=== PATIENT | female | born 2000 | race Caucasian/White ===

== ENCOUNTER 2021-07-22 08:10 | Emergency (ER) | payer OTHER, MEDICAID, SELFPAY ==
[2021-07-22 08:22] VITALS: BP 125/82; PULSE 105; RESP 18; TEMP 37.7; O2SAT 99
--- NOTE | 2021-07-22 08:59 | ED.URI ---
HPI - URI/Sore Throat General Chief Complaint: Upper Respiratory Infection Stated Complaint: Sore Throat Time Seen by Provider: 07/22/21 08:59 Source: patient and RN notes reviewed Mode of arrival: ambulatory Limitations: no limitations History of Present Illness HPI Narrative: 21-year-old female presents with concern for sore throat, body aches, fever. She reports symptoms started yesterday. She denies nasal congestion, rhinorrhea, cough, shortness of breath, nausea, vomiting, diarrhea, headache. Reports she took ibuprofen which helped with pain. MD elicited complaint: sore throat Related Data Home Medications Medication Instructions Recorded Confirmed No Home Medications 07/22/21 07/22/21 Allergies Allergy/AdvReac Type Severity Reaction Status Date / Time Penicillins Allergy Unknown RASH Verified 07/14/16 23:13 Vinegar Allergy Unknown Unknown Uncoded 07/22/21 08:52 Review of Systems Review of Systems: CONSTITUTIONAL: Report malaise, fever. EYES: Denies visual changes, redness, or discharge. ENT: Denies rhinorrhea, congestion, sinus pain, otalgia. Reports sore throat. CARDIOVASCULAR: Denies chest pain, palpitations, or edema. RESPIRATORY: Denies cough. Denies dyspnea. GASTROINTESTINAL: Denies abdominal pain, nausea, vomiting, diarrhea SKIN: Denies rash or itching. MUSCULOSKELETAL: Reports myalgia. NEUROLOGIC: Denies headache. All systems reviewed & are unremarkable except as noted in HPI and below PMFSH Comments At time of signature, agree with nursing past medical, surgical, social and family history. There is no relevant family history pertinent to the presenting complaint Exam Narrative: GENERAL: Well-appearing, well-nourished, and in no acute distress. HEAD: Normocephalic EYES: PERRLA, conjunctivae clear ENT: Nares clear. Mucous membranes moist. TM pearly contreras with dull light reflex bilaterally; no tragal tenderness. Oropharynx erythematous without lesions. Tonsils enlarged and without exudate, no drooling, no hoarseness, no trismus, uvula midline. NECK: Supple. No lymphadenopathy CHEST: Clear to auscultation, breath sounds equal. No wheezing, rhonchi, rales, or stridor. No respiratory distress, speaks in full sentences. HEART: Regular rate and rhythm. No murmur heard. SKIN: Warm, dry, no rash. NEURO: Alert and oriented x3. PSYCH: Normal mood and affect Course Course Emergency Course: Patient denies history of IgE type I mediated reaction to penicillin Patient is aware of diagnosis, understands and agrees to treatment plan. Anticipatory guidance given. Patient agrees to follow-up as directed and is aware of reasons to seek care at the emergency department. Portions of this record may have been created with voice recognition software Level of Care: Express Care Visit Vital Signs Vital signs: Vital Signs Temperature 99.8 F H 07/22/21 08:22 Pulse Rate 105 H 07/22/21 08:22 Respiratory Rate 18 07/22/21 08:22 Blood Pressure 125/82 07/22/21 08:22 Pulse Oximetry 99 07/22/21 08:22 Temperature 99.8 F H 07/22/21 08:22 Pulse Rate 105 H 07/22/21 08:22 Respiratory Rate 18 07/22/21 08:22 Blood Pressure 125/82 07/22/21 08:22 Pulse Oximetry 99 07/22/21 08:22 Reviewed. Patient has been instructed to follow up with her primary care provider within the next week regarding her elevated blood pressure today. MDM - URI/Sore Throat MDM Narrative Medical decision making narrative: Differential diagnosis considered: Van virus, strep pharyngitis, allergic rhinitis, upper respiratory tract infection, sinusitis, rhinosinusitis, nasopharyngitis. viral pharyngitis, otitis media, otitis externa, pneumonia, bronchitis, viral cough syndrome, viral syndrome, and influenza. Exam findings show no acute concerns or changes; patient is non-toxic appearing and is in no distress. Patient is appropriate for outpatient treatment and follow-up. Lab Data Attestation: I reviewed the patient's lab results. Sotero
== END 2021-07-22 09:26 | disposition home or self-care (01) ==
PROVIDERS: Emergency Provider Nurse Practitioner
DX: J03.90 Acute tonsillitis, unspecified (principal); Z20.822 Contact with and (suspected) exposure to COVID-19
CPT/HCPCS: 87081; 87426; 87880; 99203; C9803; G0463

== ENCOUNTER 2023-07-10 19:36 | Emergency (ER) | payer OTHER, MEDICAID, SELFPAY ==
[2023-07-10 19:49] VITALS: BP 121/67; PULSE 58; RESP 18; TEMP 36.8; O2SAT 100
[2023-07-10 19:50] VITALS: BP 121/67; PULSE 58; RESP 18; TEMP 36.8; O2SAT 100
--- NOTE | 2023-07-10 20:00 | ED.URI ---
HPI - URI/Sore Throat General Chief Complaint: Ear Stated Complaint: lt earache Time Seen by Provider: 07/10/23 19:55 Source: patient and RN notes reviewed Mode of arrival: ambulatory Limitations: no limitations History of Present Illness HPI Narrative: Patient presents today complaining of sore throat, body aches, postnasal drip, and left ear pain since yesterday. Denies fever. Reports sore throat has been improving since onset. Currently rates her pain 2/10 and has been taking sinus medication with some mild relief. Related Data Home Medications Medication Instructions Recorded Confirmed ergocalciferol (vitamin D2) 1,250 07/10/23 mcg (50,000 unit) capsule escitalopram oxalate 10 mg tablet mg 07/10/23 levonorgestrel 21 mcg/24 hours (8 1 device intrauterine ONCE 07/10/23 07/10/23 yrs) 52 mg intrauterine device (Mirena) Allergies Allergy/AdvReac Type Severity Reaction Status Date / Time Penicillins Allergy Unknown RASH Verified 07/14/16 23:13 Vinegar Allergy Unknown Unknown Uncoded 07/10/23 19:49 Review of Systems Review of Systems: CONSTITUTIONAL: Denies fever, chills, or sweats.+ body aches EYES: Denies visual changes, redness, or discharge. ENT: Denies rhinorrhea, congestion. + sore throat, left ear pain, postnasal drip CARDIOVASCULAR: Denies chest pain, palpitations, or edema. RESPIRATORY: Denies cough or dyspnea. GASTROINTESTINAL: Denies abdominal pain, nausea, vomiting, or diarrhea. GENITOURINARY: Denies dysuria or hematuria. SKIN: Denies rash, itching, or wounds. MUSCULOSKELETAL: Denies back pain, joint pain, or myalgia. NEUROLOGIC: Denies headache, numbness, tingling, or weakness. PSYCH: Denies depression or anxiety. PMFSH Comments At time of signature, I have reviewed and agree with nursing past medical, surgical, social and family history unless otherwise noted. Please see nursing chart for further information. There is no relevant family history pertinent to the presenting complaint Exam Narrative: GENERAL: Well-appearing, well-nourished, and in no acute distress. HEAD: Normocephalic, atraumatic. EYES: EOMI. No redness or drainage. Conjunctivae normal. ENT: Mucous membranes pink and moist. Nares congested. No rhinorrhea. Right TM bulging with clear material. Left TM erythematous and bulging with purulent material. Throat mildly erythematous without exudate. Uvula midline. NECK: Normal AROM. Supple. No lymphadenopathy. CHEST: No respiratory distress. Clear to auscultation. HEART: Regular rate and rhythm. No murmur appreciated. EXTREMITIES: Normal range of motion. No edema. SKIN: Warm, dry, no rash. Capillary refill normal. Normal skin turgor. NEURO: No focal deficits. Alert and oriented x3. Gait steady. PSYCH: Normal affect. No signs of depression or anxiety. Course Course Level of Care: Express Care Visit Vital Signs Vital signs: Vital Signs Temperature 98.2 F 07/10/23 19:49 Pulse Rate 58 L 07/10/23 19:49 Respiratory Rate 18 07/10/23 19:49 Blood Pressure 121/67 07/10/23 19:49 Pulse Oximetry 100 07/10/23 19:49 Oxygen Delivery Room Air 07/10/23 19:49 Temperature 98.2 F 07/10/23 19:50 Pulse Rate 58 L 07/10/23 19:50 Respiratory Rate 18 07/10/23 19:50 Blood Pressure 121/67 07/10/23 19:50 Pulse Oximetry 100 07/10/23 19:50 Oxygen Delivery Room Air 07/10/23 19:50 Reviewed MDM - URI/Sore Throat MDM Narrative Medical decision making narrative: Patient will be treated with a course of cefdinir her ear infection. Remainder of symptoms are likely viral. Discussed [id number] treatment and duration of illness. Anticipatory guidance given. Differential Diagnosis Differential diagnosis: Likely upper respiratory infection, otitis media, viral infection and pharyngitis Critical Care Time Critical Care Time Critical Care Time: No Discharge Plan Discharge Clinical Impression: Acute suppur left otitis media w/o s
== END 2023-07-10 20:08 | disposition home or self-care (01) ==
PROVIDERS: Emergency Provider Nurse Practitioner; PCP Physician Assistant
DX: H66.002 Acute suppurative otitis media without spontaneous rupture of ear drum, left ear (principal); J06.9 Acute upper respiratory infection, unspecified; Z79.899 Other long term (current) drug therapy
CPT/HCPCS: 99213; G0463

== ENCOUNTER 2024-11-22 13:57 | Outpatient (CLI) | payer OTHER, MEDICAID, SELFPAY ==
--- OUTSIDE RECORDS SUMMARY | 2024-11-22 14:01 | XMS_ITS | Clinical Summary ---
Author Organization [facility] [employer] Address [address] [place] [address] Care Team Providers Care Therapeutic Riding Instructor Name Role Phone Masood Santamaria MD Primary Care Provider [phone] Source Comments [facility],non-owned Affiliates and Associated Physician Practices is amultiple site organization consisting of ambulatory clinics and hospital sitesin [place], [place], [place] and [place]. This disclosure is being madepursuant to the Care Everywhere program and may not contain all information available regarding this patient. Last updated 18.[facility] Allergies Active Allergy Reactions Criticality Noted Date Comments Penicillins 02/25/2012 Medications * Be aware that medications may not be up to date on this document. Alwaysverify current medications with the patient. 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 (F LUZONE; FLULAVAL; FLUARIX; AFLURIA QUADRIVALENT; 6MO+), 0.5 ML (IIV4) 02/07/2021,02/25/2020 Influenza Pf Intradermal (ADULT) 01/23/2017 Family History Medical History Relation Name Comments Arthritis - Rheumatoid Neg Hx Celiac Disease Neg Hx Crohn's Disease Neg Hx Lupus Neg Hx Psoriasis Neg Hx Thyroid Disease Neg Hx Ulcerative Colitis Neg Hx Social History Tobacco Use Types Packs/Day Years Used Date Smoking Tobacco: Never Tobacco Cessation:Counseling Given: No Alcohol Use Standard Drinks/Week Comments No 0 (1 standard drink = 0.6 oz pur e alcohol) Comments No Sex and Gender Information Value Date Recorded Sex Assigned at Not on file Legal Sex Female 5:44 AM BUSPERSON Gender Identity Female 02/05/2021 12:40 PM CDT Sexual Orientation Not on file Last Filed Vital Signs Vital Sign Reading Time Taken Comments Blood Pressure 108/66 12/24/2016 3:49 PM CDT Pulse 60 12/24/2016 3:49 PM CDT Temperature 37 C (98.6 F) 12/24/2016 3:49 PM CDT Respiratory Rate 24 12/24/2016 3:49 PM CDT Oxygen Saturation 99% 08/03/2012 11:00 AM CDT Inhaled Oxygen Concentration - - Weight 58.6 kg (129 lb 3 oz) 12/24/2016 3:49 PM CDT Height 164.3 cm (5' 4.69) 12/24/2016 3:49 PM CD T Body Mass Index 21.71 12/24/2016 3:49 PM CDT Plan of Treatment Health Maintenance Due Date Last Done Comments HIV SCREENING 2015 HPV VACCINE (1 - 3-dose series) 2015 CHLAMYDIA/GONORRHEA SCREENING 2016 HEPATITIS C SCREENING 03/08/2018 DTAP/TDAP/TD VACCINES (1 - Tdap) 2019 HEPATITIS B VACCINE (1 of 3 - 19+ 3-dose series) 2019 COVID-19 VACCINE (1 - 2023- season) 2024 DEPRESSION SCREENING 05/23/2024 INFLUENZA VACCINE (Season Ended) 2025 02/07/2021, 02/25/2020, 01/11/2018, Additional history exists ZOSTER VACCINE (1 of 2) 2050 HIB VACCINE Aged Out No longer eligi ble based on patient's age to complete this topic MENINGOCOCCAL (Group B) VACCINE SHARED DECISION-MAKING Aged Out No longer eligible based on patient's age to complete this topic MENINGOCOCCAL GROUPS A/C/Y/W VACCINE Aged Out No longer eligible based on patient's age to complete this topic PNEUMOCOCCAL VACCINE Aged Out No long er eligible based on patient's age to complete this topic Insurance [employer] MEDICAID - [place] Care Teams Therapeutic Riding Instructor Relationship Specialty Start Date End Date Masood Santamaria MD [address], [place] [address] PCP - General Pediatrics 02/24/12
--- OUTSIDE RECORDS SUMMARY | 2024-11-22 14:01 | XMS_ITS | Clinical Summary ---
Author Organization [facility] Address [address] [place] [address] Phone Care Team Providers Care Lighting Fixture Installer Name Role Phone Masood Santamaria MD Primary Care Provider Allergies Active Allergy Reactions Criticality Noted Date Comments Penicillins Rash 06/24/2018 Medications traMADol (ULTRAM) 50 MG Tablet Take 1-2 Tabs by mouth every 6 hours as needed for Mild or more severe pain. 20 Tab 06/24/2018 Active Social History Tobacco Use Types Packs/Day Years Used Date Smoking Tobacco: Never Assessed Comments No Sex and Gender Information Value Date Recorded Sex Assigned at Not on file Legal Sex Female 10:56 PM CDT Gender Identity Not on file Sexual Orientation Not on file Last Filed Vital Signs Vital Sign Reading Time Taken Comments Blood Pressure 133/84 06/24/2018 2:26 PM LEATHER STRIPPING MACHINE OPERATOR Pulse 64 06/24/2018 2:26 PM LEATHER STRIPPING MACHINE OPERATOR Temperature 36.8 C (98.3 F) 06/24/2018 11:42 AM LEATHER STRIPPING MACHINE OPERATOR Respiratory Rate 16 06/24/2018 2:26 PM LEATHER STRIPPING MACHINE OPERATOR Oxygen Saturation 100% 06/24/2018 2:26 PM LEATHER STRIPPING MACHINE OPERATOR Inhaled Oxygen Concentration - - Weight 56.7 kg (125 lb) 06/24/2018 11:42 AM LEATHER STRIPPING MACHINE OPERATOR Height 165.1 cm (5' 5) 06/24/2018 11:42 AM LEATHER STRIPPING MACHINE OPERATOR Body Mass Index 20.8 06/24/2018 11:42 AM LEATHER STRIPPING MACHINE OPERATOR Plan of Treatment Health Maintenance Due Date Last Done Comments Hepatitis C Virus (HCV) Screening 2000 SARS-COV-2 Immunization ( season) 2024 05/24/2021, 04/22/2021 Influenza Immunization (#1) 2025 01/11/2018, 1 Respiratory Syncytial Virus (RSV) Immunization (Adult) (1 - 1-dose 75+ series) 2075 TdaP Immunization Completed 12/02/2011 Hepatitis A Immunization Discontinued 09/15/2012, 11/20 Human Papillomavirus (HPV) Immunization Completed 12/05/2012, 09/15/2012, 12/02/2011 DTaP/Tdap/Td Immunization Discontinued 2013, 12/02/2011, 08/26/2006, Additional history exists Hepatitis B Immunization Completed 014, 2000, 2000, Additional history exists Measles Mumps Rubella (MMR) Immunization Discontinued 03/25/2014, 08/26/2006, 03/17/2001 Pneumococcal Immunization Combined Aged Out 03/25/2014, 07/07/2001, 2000, Additional history exists No longer eligible based on patient's age to complete this topic Polio (IPV) Immunization Discontinued 014, 08/26/2006, 07/07/2001, Additional history exists Varicella Immunization Discontinued 4, 08/26/2006, 03/17/2001 Meningococcal Immunization (ACWY) Completed 04/02/2016, 12/02/2011 Meningococcal B Immunization Discontinued 03/13/2018, 01/11/2018 Rotavirus Immunization Aged Out No lo nger eligible based on patient's age to complete this topic Insurance [employer] [facility] MEDICAID [place] Care Teams Lighting Fixture Installer Relationship Specialty Start Date End Date Masood Santamaria MD PCP - General Pediatrics 06/24/18
--- OUTSIDE RECORDS SUMMARY | 2024-11-22 14:01 | XMS_ITS | Referral Summary ---
Author Organization [facility] Address [address] [place] [address] Care Team Providers Care Smart Energy Specialist Name Role Phone No, Physician Primary Care Provider [phone] Encounters Date Type Department Care Team Description 09/21/2024 Results Follow-Up [facility] [address] (Third Floor) [place] [address] Sheridan Justice MA T-SPOT.TB Blood 09/17/2024 11:40 AM CDT Lab [facility] [address] [place] [id number] Pre-employment health screening examination 09/17/2024 Orders Only [facility] [address] (Third Floor) [place] [address] Deep Garcia MD Pre-employment health screening examination (Primary Dx) from Last 3 Months Allergies Active Allergy Reactions Criticality Noted Date Comments Penicillins Rash Medium 06/29/2018 Medications KARIVA, 28, 0.15-0.02 mgx21 /0.01 mg x 5 per tablet 04/17/2018 Active Active Problems Problem Noted Date Diagnosed Date Displaced fracture of proxim al phalanx of left thumb with routine healing 06/29/2018 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 Social History Tobacco Use Types Packs/Day Years Used Date Smoking Tobacco: Never Smokeless Tobacco: Never Alcohol Use Standard Drinks/Week Comments No 0 (1 standard drink = 0.6 oz pur e alcohol) Comments Unknown Sex and Gender Information Value Date Recorded Sex Assigned at Not on file Legal Sex Female 1:35 AM ACCOUNT INSTALLER Gender Identity Not on file Sexual Orientation Not on file Last Filed Vital Signs Vital Sign Reading Time Taken Comments Blood Pressure 129/82 06/30/2018 1:40 PM ACCOUNT INSTALLER Pulse 68 06/30/2018 1:40 PM ACCOUNT INSTALLER Temperature 36.5 C (97.7 F) 06/30/2018 1:40 PM ACCOUNT INSTALLER Respiratory Rate 20 06/30/2018 1:40 PM ACCOUNT INSTALLER Oxygen Saturation 100% 06/30/2018 1:40 PM ACCOUNT INSTALLER Inhaled Oxygen Concentration - - Weight 56.2 kg (123 lb 14.4 oz) 019 10:45 AM ACCOUNT INSTALLER Height 166 cm (5' 5.35) 06/30/2018 10: 45 AM ACCOUNT INSTALLER Body Mass Index 20.4 06/30/2018 10:45 AM ACCOUNT INSTALLER Plan of Treatment Not on file Medical Devices Implanted Type Area Retail Performance Coach Device Identifier Shelf Expiration Date Model / Serial / Lot [employer] 1600-021 Jolly .035in 5.5in 2 Trocar Wire Fixation - [id number] Implanted:Qty: 2 on 06/30/2018 by Vik Almeida MD at [facility] [employer] 1600-021 / / Procedures Procedure Name Priority Date/Time Associated Diagnosis Comments T-SPOT.TB Routine 09/17/2024 11:53 AM CDT Pre-employment health screening examination from Last 3 Months Results * T-SPOT.TB Blood (09/17/2024 11:53 AM CDT) [facility] T-SPOT.TB Negative SeeBelow Comment: Normal Value: Negative A negative test result does not exclude the possibility of exposure to or infection with Mycobacterium tuberculosis (M. tuberculosis). Patients with recent exposure to TB infected individuals exhibiting a negative T-SPOT.TB result should be considered for retesting within 6 weeks or if other relevant clinical symptoms indicate. Results from T-SPOT.TB testing must be used in conjunction with each individual's epidemiological history, current medical status, and results of other diagnostic evaluations. The T-SPOT.TB test is qualitative and results are reported as positive, borderline or negative, given that the test controls perform as expected. In line with the Centers for Disease Control and Prevention's 2010 recommendation to report quantitative measurements alongside the qualitative result, the laboratory provides spot counts for informational purposes only. The T-SPOT.TB test should not be interpreted as a quantitative test. T-SPOT.TB Panel A Spot Count 0 [facility] T-SPOT.TB Panel B Spot Count [address] [facility] T-SPOT.TB Negative Control Passed [facility] T-SPOT.TB Positive Control Passed [facility] Comment: Test Performed at: [employer] [facility] [address] [place] [phone] ANYA MASON,PHD Blood 09/17/2024 11:5 3 AM CDT 09/17/2024 12:03 PM CDT Narrative [facility] - 09/19/2024 3:52 PM CDT Bill to [facility] - 15[address] Patient is employed by/enrolled at:->[facility] Deep Gracia MD LAB MICROBIOLOGY - GENERAL OR DERABLES Final Result [facility] [address] [place] [address] from Last 3 Months Insurance wireLawyer [facility] IDPA Advance Directives For more information, please contact: [phone] Documents on File Type Date Recorded Patient Medical Economics Consultant Expl anation ADVANCE DIRECTIVE 06/30/2018 10:24 AM ADVANCE DIRECTIVE 06/29/2018 9:13 AM Care Teams Smart Energy Specialist Relationship Specialty Start Date End Date No, Physician PCP - General 06/26/18
--- OUTSIDE RECORDS SUMMARY | 2024-11-22 14:01 | XMS_ITS | Clinical Summary ---
Author Organization [facility] Address [facility] [place] [address] Care Team Providers Care Percussion Instrument Repairer Name Role Phone Salina Colin MD Primary Care Provider [phone] Allergies Active Allergy Reactions Criticality Noted Date Comments Penicillins Rash Medium 02/25/2012 Medications venlafaxine XR (EFFEXOR-XR) 37.5 MG 24 hr capsuleIndicati ons:Depression screening,Gener alized anxiety disorder Take 1 capsule (37.5 mg total) by mouth daily. 30 capsule 2 11/11/2023 Active Active Problems Problem Noted Date Diagnosed Date Gastroesophageal reflux disease without esophagi tis 11/14/2023 Vitamin D deficiency 08/22/2023 Generalized anxiety disorder 08/22/2023 Depression 08/22/2023 Pneumothorax 01/28/2022 Resolved Problems Problem Noted Date Diagnosed Date Resolved Date Displaced fracture of proxim al phalanx of left thumb with routine healing 06/29/2018 08/22/19 24 Immunizations Immunization Administration Dates Next Due DTaP (Daptacel) 08/26/2006, 2,2000,2000,2000 COcK-SvpX-PUV (Pediarix) 03/25/2014 HPV4 (Gardasil) 12/05/2012,09/15/2012,12/02/2011 Hepatitis A (Generic) 09/15/2012,12/02/2011 Hepatitis B Pediatric 2000,2000,02/21 Hib 03/25/2014 Hib (Generic) 07/07/2001, 1,2000,1999 Influenza Adult (Generic) 02/26/2023,02/07/2021, 02/25/2020 MMR 03/25/2014,08/26/2006,03/17/2001 Menactra 04/02/2016,12/02/2011 Meningcoccal Group B (Bexser o)(aka Meningitis) 03/13/2018,01/11/2018 Pneumococcal (Prevnar 13) 03/25/2014 Pneumococcal (Prevnar 7) 07/07/2001,08/22,2000,1999 Polio IPV (Ipol) 08/26/2006,,2000,1999 Tdap (Adacel) 12/02/2011 Varicella Vaccine 03/25/2014,08/26/2006,03/17/20 Family History Medical History Relation Comments No Known Problems Father Diabetes Maternal Grandfather Hypertension Maternal Grandfather COPD Maternal Grandmother No Known Problems Mother Cancer Paternal Grandfather Breast COPD Paternal Grandmother Stroke Paternal Grandmother Relation Status Comments Father Alive Maternal Grandfather Maternal Grandmother Mother Alive Paternal Grandfather Paternal Grandmother Social History Tobacco Use Types Packs/Day Years Used Date Smoking Tobacco: Never Smokeless Tobacco: Never Tobacco Cessation:Counseling Given: No Alcohol Use Standard Drinks/Week Comments Yes 0 (1 standard drink = 0.6 oz pur e alcohol) rare AUDIT-C Answer Date Recorded Frequency of Alcohol Consumption Never 12/04/2019 Average Number of Drinks Not on file 020 Frequency of Binge Drinking Not on file 11/20 PHQ-2 Answer Date Recorded Patient Health Questionnaire-2 Score 0 11/11/2023 Comments No Sex and Gender Information Value Date Recorded Sex Assigned at Not on file Legal Sex Female 4:20 PM CDT Gender Identity Not on file Sexual Orientation Not on file Last Filed Vital Signs Vital Sign Reading Time Taken Comments Blood Pressure 116/73 11/11/2023 9:47 AM CDT Pulse 59 11/11/2023 9:47 AM CDT Temperature 37.2 C (99 F) 11/11/2023 9:47 AM CDT Respiratory Rate 18 11/11/2023 9:47 AM CDT Oxygen Saturation 99% 11/11/2023 9:47 AM CDT Inhaled Oxygen Concentration - - Weight 58.1 kg (128 lb) 11/11/2023 9:47 AM CDT Height 165.1 cm (5' 5) 11/11/2023 9:47 AM CDT Body Mass Index 21.3 11/11/2023 9:47 AM CDT Plan of Treatment Health Maintenance Due Date Last Done Comments Cervical Cancer Screening Pap Smear (Age 21 to 29) Every 3 Years 2000 Cervical Cancer Screening 2000 Chlamydia Screening Females ages 16-24 2016 Hepatitis C 2018 COVID-19 Vaccine ( season) 2024 05/24/2021, 04/22/2021 DTaP, Tdap and Td Vaccines (8 - Td or Tdap) 03/25/2024 03/25/2014, 12/02/2011, 08/26/2006, Additional history exists PHQ-2 (Physician Dufur) 05/23/2024 11/11/2023 Annual Physical 08/21/2024 08/22/2023, 12/04/2019 HPV Vaccines Completed 12/05/2012, 08/22, 12/02/2011 Hepatitis B Vaccines Completed 03/25/2014, 2000, 2000, Additional history exists Pneumococcal Vaccine: Pediatrics (0 to 5 Years) and At-Risk Patients (6 to 49 Years) Aged Out 03/25/2014, 07/07/2001, 2000, Additional history exists No longer eligible based on patient's age to complete this topic Meningococcal Vaccine Completed 04/02/2016, 012 Meningococcal B Vaccine Completed 03/13/2018, 01/11 RSV Immunizations Under 20 Months Aged Out No longer eligible based on patient's age to complete this topic Goals Goal Patient Goal Type Associated Problems Recent Progress Patient-Stated? Author Patient will return to prior living situation and remain independent in ADLs upon discharge from hospital Lifestyle Hilaria Ordoñez, RN Insurance [employer] [facility] Advance Directives * Full Code (Latest Code Status on File) Date Activated Date Inactivated Comments 01/28/2022 2:31 AM 01/29/2022 5:17 PM Care Teams Percussion Instrument Repairer Relationship Specialty [place] [id number] [address] PCP - General INTERNAL MEDICINE 08/16/24
--- OUTSIDE RECORDS SUMMARY | 2024-11-22 14:01 | XMS_ITS | Clinical Summary ---
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 Encounters Date Type Department Care Team Description 09/21/2024 Results Follow-Up [facility] [address] [address] ([address] Floor) [place] [address] Sheridan Justice MA T-SPOT.TB Blood 09/17/2024 11:40 AM CDT Lab [facility] Lab [address] [place] [id number] Pre-employment health screening examination 09/17/2024 Orders Only [facility] [address] [place] [address] Room [facility] (Third Floor) [place] [address] Deep Garcia MD Pre-employment health screening examination (Primary Dx) from Last 3 Months Surgical History Surgery Date Site/Laterality Comments KIDNEY SURGERY BIOPSY 2004 BONE RESECTION BONE SPUR REMOVAL 2013 DENTAL SURGERY Medical History Medical History Date Comments HSP (Henoch Schonlein purpura) n o lingering problems Closed displaced fracture of proximal phalanx of left thumb 06/29/2018 Family History Medical History Relation Name Comments No Known Problems Mother Relation Name Status Comments Mother Social History Tobacco Use Types Packs/Day Years Used Date Smoking Tobacco: Never Smokeless Tobacco: Never Alcohol Use Standard Drinks/Week Comments No 0 (1 standard drink = 0.6 oz pur e alcohol) Comments Unknown Sex and Gender Information Value Date Recorded Sex Assigned at Not on file Legal Sex Female 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 Gender Identity Not on file Sexual Orientation Not on file Obstetrics History Last Filed Vital Signs Vital Sign Reading Time Taken Comments Blood Pressure 129/82 06/30/2018 1:40 PM PRINTER REPAIR TECHNICIAN Pulse 68 06/30/2018 1:40 PM PRINTER REPAIR TECHNICIAN Temperature 36.5 C (97.7 F) 06/30/2018 1:40 PM PRINTER REPAIR TECHNICIAN Respiratory Rate 20 06/30/2018 1:40 PM PRINTER REPAIR TECHNICIAN Oxygen Saturation 100% 06/30/2018 1:40 PM PRINTER REPAIR TECHNICIAN Inhaled Oxygen Concentration - - Weight 56.2 kg (123 lb 14.4 oz) 019 10:45 AM PRINTER REPAIR TECHNICIAN Height 166 cm (5' 5.35) 06/30/2018 10: 45 AM PRINTER REPAIR TECHNICIAN Body Mass Index 20.4 06/30/2018 10:45 AM PRINTER REPAIR TECHNICIAN Plan of Treatment Health Maintenance Due Date Last Done Comments Cervical Cancer Screening 2000 Depression Screening 2000 Hepatitis C Screening 2000 Regular Well Visit/Exam 18-64 2018 Covid-19 Vaccine (3 - 4-2 5 season) 2024 05/24/2021, 04/22/2021 Influenza Vaccine (#1) 2025 , 02/26/2023, 02/07/2021, Additional history exists DTaP/Tdap/Td Vaccine (9 - Td or Tdap) 12/11/2031 12/10/2021, 03/25/2014, 12/02/2011, Additional history exists HPV Vaccines Completed 12/05/2012, 08/22, 12/02/2011 Hepatitis B Screening Completed 03/25/2014 , 2000, 2000, Additional history exists Pneumococcal vaccine <65 Completed 014, 07/07/2001, 2000, Additional history exists Varicella Vaccines Completed 03/25/2014, 0 08/26/2006, 03/17/2001 Medical Devices Implanted Type Area Position Classification Specialist Device Identifier Shelf Expiration Date Model / Serial / Lot [employer] 1600-021 Jolly .035in 5.5in 2 [employer] Wire Fixation - [id number] Implanted:Qty: 2 on 06/30/2018 by Vik Almeida MD at [facility] [employer] 1600- / / Procedures Procedure Name Priority Date/Time Associated Diagnosis Comments T-SPOT.TB Routine 09/17/2024 11:53 AM CDT Pre-employment health screening examination from Last 3 Months Results * T-SPOT.TB Blood (09/17/2024 11:53 AM CDT) [facility] T-SPOT.TB Negative SeeBelow Comment: Normal Value: Negative [...] test. T-SPOT.TB Panel A Spot Count 0 [facility] T-SPOT.TB Panel B Spot Count 0 [facility] T-SPOT.TB Negative Control Passed [facility] T-SPOT.TB Positive Control Passed [facility] Comment: Test Performed at: [facility] [employer] [facility] [address] [place] [id number] ANYA MASON,PHD Blood 09/17/2024 11:5 3 AM CDT 09/17/2024 12:03 PM CDT Narrative [facility] FARNSWORTH - 09/19/2024 3:52 PM CDT Bill to [facility] - [address] Patient is employed by/enrolled at:->[facility] us Deep Garcia MD LAB MICROBIOLOGY - GENERAL OR DERABLES Final Result [facility]ARNSWORTH [address] [facility] Department [place] [address] from Last 3 Months Insurance [employer] [facility] Advance Directives For more information, please contact: [phone] Documents on File Type Date Recorded Patient Supervisor Refining Expl anation ADVANCE DIRECTIVE 06/30/2018 10:24 AM ADVANCE DIRECTIVE 06/29/2018 9:13 AM Care Teams Silo Tender Relationship Specialty Start Date End Date No, Physician PCP - General 06/26/18
--- OUTSIDE RECORDS SUMMARY | 2024-11-22 14:01 | XMS_ITS | Encounter Summary ---
Author Organization [facility] Address [facility] [place] [address] Care Team Providers Care Dynamometer Mechanic Name Role Phone Racquel Morillo PA-C Primary Care Provider [phone] Salina Colin MD Primary Care Provider [phone] Encounter Details Date Type Department Care Team (Late st Contact Info) Description 06/16/2023 [employer] Message [facility] Family & Internal Medicine [address] [address] [facility] Provider results. Social History Tobacco Use Types Packs/Day Years Used Date Smoking Tobacco: Never Smokeless Tobacco: Never Alcohol Use Standard Drinks/Week Comments Not Currently 0 (1 standard drink = 0.6 oz pur e alcohol) AUDIT-C Answer Date Recorded Frequency of Alcohol Consumption Never 12/04/2019 Average Number of Drinks Not on file 020 Frequency of Binge Drinking Not on file 11/20 PHQ-2 Answer Date Recorded Patient Health Questionnaire-2 Score 2 06/10/2023 Comments No Sex and Gender Information Value Date Recorded Sex Assigned at Not on file Legal Sex Female 4:20 PM CDT Gender Identity Not on file Sexual Orientation Not on file documented as of this encounter Functional Status * RETIRED Are you deaf or do you have serious difficulty hearing Answer Date of Assessment Author Status No 01/28/2022 2:51 AM CDT Activ e * RETIRED Are you blind or do you have serious difficulty seeing, even when wearing glasses? Answer Date of Assessment Author Status No 01/28/2022 2:51 AM CDT Activ e * Do you have serious difficulty walking or climbing stairs? Answer Date of Assessment Author Status No 01/28/2022 2:51 AM Darius Villagomez RN Active * Do you have difficulty dressing or bathing? Answer Date of Assessment Author Status No 01/28/2022 2:51 AM Darius Villagomez RN Active * Because of a physical, mental, or emotional condition, do you have difficulty doing errands alone such as visiting a doctor's office or shopping? Answer Date of Assessment Author Status No 01/28/2022 2:51 AM Darius Villagomez RN Active documented as of this encounter Mental Status * Because of a physical, mental, or emotional condition, do you have serious difficulty concentrating, remembering, or making decisions? Answer Entry Date Author Status No 01/28/2022 2:51 AM Darius Villagomez RN Active documented in this encounter Plan of Treatment Not on file documented as of this encounter Goals Goal Patient Goal Type Associated Problems Recent Progress Patient-Stated? Author Patient will return to prior living situation and remain independent in ADLs upon discharge from hospital Lifestyle No Hilaria Pacheco RN documented as of this encounter Visit Diagnoses Not on filedocumented in this encounter Additional Health Concerns Assessment Noted Time PHQ-9 Depression Total Score: 6 06/10/19 24 11:02 AM LAW OFFICE MANAGER documented as of this encounter Care Teams Dynamometer Mechanic Relationship Specialty Start Date End Date Racquel Morillo PA-C PCP - General PHYSICIAN PRE OWNED SALES CONSULTANT 06/08/23 08/15/24 [place] [id number] [address] PCP - General INTERNAL MEDICINE 08/16/24 documented as of this encounter
--- OUTSIDE RECORDS SUMMARY | 2024-11-22 14:01 | XMS_ITS | Encounter Summary ---
Author Organization [facility] Healthcare Address [address] [place] [address] Care Team Providers Care Payment Poster Name Role Phone No, Physician Primary Care Provider [phone] Encounter Details Date Type Department Care Team (Late st Contact Info) Description 09/21/2024 Results Follow-Up [facility] Healthcare Occup[facility]onal [facility] [address] [facility] [address] (Third Floor) [place] [address] Sheridan Justice MA T-SPOT.TB Blood Social History Tobacco Use Types Packs/Day Years Used Date Smoking Tobacco: Never Smokeless Tobacco: Never Alcohol Use Standard Drinks/Week Comments No 0 (1 standard drink = 0.6 oz pur e alcohol) Comments Unknown Sex and Gender Information Value Date Recorded Sex Assigned at Not on file Legal 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
[2024-11-22 15:10] LABS: Thyroid Stimulating Hormone Reflex 1.400 uIU/mL (0.465-4.68)
[2024-11-25 02:38] LABS: DHEA-Sulfate. 169 mcg/dL (14-349); LH. 0.4 mIU/mL; Prolactin. 4.1 ng/mL
== END 2024-11-22 13:58 | disposition home or self-care (01) ==
LOC: ANHLAB 13:59
PROVIDERS: Visit Provider Nurse Practitioner Obstetrics & Gynecology
DX: N93.9 Abnormal uterine and vaginal bleeding, unspecified (principal)
CPT/HCPCS: 36415; 82306; 82627; 83001; 83002; 84146; 84443

== ENCOUNTER 2025-01-10 15:56 | Outpatient (CLI) | payer OTHER, SELFPAY ==
--- NOTE | ~2025-01-10 | US_ITS ---
EXAMINATION: US pelvic complete w TV INDICATION: IUD check Comparison:No prior studies for comparison. TECHNIQUE: Multiple transabdominal and endovaginal sonographic images of the pelvis performed. FINDINGS: The uterus measures 5.6 x 2.4 x 3.8 cm. IUD present in the endometrium. The endometrial complex measures 3 mm. The right ovary measures 3.1 x 1.6 x 1.8 cm and the left ovary measures 3 x 1.9 x 1.7 cm. There are small follicles in each ovary. Normal doppler signal in both ovaries. There is no free fluid in the pelvis. There are no abnormal masses seen on either side. IMPRESSION: 1. Unremarkable pelvic ultrasound. IUD in expected position within the endometrium. Reviewed, dictated and finalized at location O. IMPRESSION: 1. Unremarkable pelvic ultrasound. IUD in expected position within the endometr ium.
== END 2025-01-10 15:57 | disposition home or self-care (01) ==
LOC: MICIMG 15:56
PROVIDERS: PCP Nurse Practitioner Obstetrics & Gynecology; Visit Provider Nurse Practitioner Obstetrics & Gynecology
DX: Z30.431 Encounter for routine checking of intrauterine contraceptive device (principal)
CPT/HCPCS: 76830; 76856